=== PATIENT | female | born 1970 | race Caucasian/White ===

== ENCOUNTER 2022-12-19 22:18 | Emergency (ER) | payer SELFPAY ==
[2022-12-19] MEDS ORDERED: Prochlorperazine 10 MG/2 ML SDV IVPUSH ONE (22:32)
[2022-12-19] MEDS ORDERED: Ketorolac 30 MG/ML SDV IVPUSH ONE (22:32)
[2022-12-19] MEDS ORDERED: Sodium Chloride 0.9% 500 ML IV ONE (22:33)
== END 2022-12-20 00:26 | disposition home or self-care (01) ==
LOC: JP.ED 22:18
DX: G43.909 Migraine, unspecified, not intractable, without status migrainosus (principal); Z86.16 Personal history of COVID-19; Z79.899 Other long term (current) drug therapy
CPT/HCPCS: 36415; 70450; 80048; 82803; 84145; 85025; 86140; 96361; 96374; 96375; 99285; J0780; J1885; J7040

== ENCOUNTER 2024-08-02 22:17 | Emergency (ER) | payer MEDICAID, OTHER ==
[2024-08-02] MEDS: Sodium Chloride 0.9% 1,000 ML IV SCH (23:34)
[2024-08-02] MEDS: Ketorolac 30 MG/ML SDV IVPUSH ONE (23:34)
[2024-08-02] MEDS: Prochlorperazine 10 MG/2 ML SDV IVPUSH ONE (23:34)
[2024-08-03 00:12] LABS: BASOPHILS ABSOLUTE AUTO 0.05 K/uL (0.00-0.10); BASOPHILS PERCENT AUTO 0.3 % (0.1-1.3); EOSINOPHILS ABSOLUTE AUTO 0.07 K/uL (0.00-0.40); EOSINOPHILS PERCENT AUTO 0.4 % (0.0-5.4); HEMATOCRIT 39.7 % (34.3-46.0); HEMOGLOBIN 13.2 g/dL (11.2-15.5); IMMATURE GRAN ABSOLUTE AUTO 0.39 K/uL (0.00-0.23); LYMPHOCYTES PERCENT AUTO 5.7 % (11.4-47.7); MEAN CORPUSCULAR HEMOGLOBIN 30.3 pg (31.6-35.5); MEAN CORPUSCULAR HGB CONC 33.2 g/dL (31.6-35.5); MEAN CORPUSCULAR VOLUME 91.3 fL (81.4-99.0); MONOCYTES ABSOLUTE AUTO 1.04 K/uL (0.20-0.90); MONOCYTES PERCENT AUTO 5.4 % (3.3-12.6); NEUTROPHILS ABSOLUTE AUTO 16.55 K/uL (1.0-7.6); NEUTROPHILS PERCENT AUTO 86.2 % (40.0-78.1); PLATELET COUNT,PLT 243 K/uL (130-375); RED BLOOD CELL COUNT 4.35 M/uL (3.77-5.24); WHITE BLOOD CELL COUNT,WBC 19.2 K/uL (3.2-11.0)
[2024-08-03 00:42] LABS: CALCIUM 9.4 mg/dL (8.5-10.1); CREATININE 1.2 mg/dL (0.6-1.0); EST CRCL DRUG DOSING (CG) 45.74 mL/min; POTASSIUM,K 3.7 mmol/L (3.6-5.2)
[2024-08-03 00:43] LABS: ANION GAP 16.7 mmol/L (5.0-14.0); TROPONIN I HIGH SENSITIVITY 134.3 pg/mL (<=60.3)
== END 2024-08-03 07:21 | disposition other institution (70) ==
LOC: JP.ED 22:17
DX: I21.4 Non-ST elevation (NSTEMI) myocardial infarction (principal); Z79.899 Other long term (current) drug therapy
CPT/HCPCS: 36415; 70450; 71045; 80048; 84484; 85025; 93005; 96361; 96374; 96375; 99285; J0780; J1885; J7030